=== PATIENT | female | born 1975 | race African-American/Black ===

== ENCOUNTER 2024-12-07 08:55 | Inpatient (IN) | payer MEDICAID, OTHER ==
[~2024-12-07] VITALS: Ht 165.1 cm; Wt 48.5 kg
[~2024-12-07 08:55] MED LIST: FERR325T28 PO; FLUT1BLS13 INH; FURO40TA5 PO; HYDR200T4 PO; LOSA25TA27 PO; METO-356 PO; NIFE60TA73 PO; SPIR25TA6 PO; TIOT18CA3 INH
[2024-12-07] MEDS ORDERED: SACU1TAB PO (09:13)
[2024-12-07] MEDS ORDERED: CARV3.122 PO (09:13)
[2024-12-07] MEDS ORDERED: OLAN10TA73 PO (09:13)
[2024-12-07] MEDS ORDERED: DIGO125T PO (09:13)
[2024-12-07] MEDS ORDERED: FURO40TA5 PO (09:13)
[2024-12-07] MEDS ORDERED: ATOR40TA PO (09:13)
[2024-12-07] MEDS ORDERED: SACU1TAB7 PO (09:13)
[2024-12-07 09:20] LABS: PLATELET COUNT (AUTO) 336 K/uL (179-408); RED BLOOD CELL COUNT(AUTO) 4.88 MIL/uL (3.63-4.92); RED CELL DISTRIBUTION WIDTH 19.1 % (12.3-17.7); WHITE BLOOD COUNT (AUTO) 6.4 K/uL (3.8-11.8)
[2024-12-07 09:27] LABS: CREATININE 0.6 mg/dL (0.6-1.3); SODIUM SERUM 141 mmol/L (136-145); UREA NITROGEN, BLOOD 11 mg/dL (7-18)
[2024-12-07 09:34] LABS: ASPARTATE AMINOTRANSFERASE 13 U/L (15-37); TOTAL PROTEIN, SERUM 8.6 g/dL (6.4-8.2)
[2024-12-07] MEDS ORDERED: METOPROLOL TARTRATE 50 MG TABLET ONE (09:49)
[2024-12-07] MEDS ORDERED: FUROSEMIDE 20 MG/2 ML VIAL ONE (09:49)
[2024-12-07] MEDS: FUROSEMIDE 20 MG/2 ML VIAL IV ONE (09:58)
[2024-12-07] MEDS: METOPROLOL TARTRATE 50 MG TABLET PO ONE (09:59)
[2024-12-07 10:34] LABS: *BILIRUBIN,URIN NEGATIVE (NEGATIVE); *BLOOD, URINE NEGATIVE (NEGATIVE); *CLARITY,URINE CLEAR (CLEAR); *COLOR,URINE YELLOW (YELLOW); *KETONES,URINE NEGATIVE (NEGATIVE); *PROTEIN,URINE NEGATIVE (NEGATIVE); *UROBILINOGEN,URINE 0.2 E.U./dl (NORMAL); LEUKOCYTE ESTERASE ,URINE NEGATIVE (NEGATIVE); NITRITE, URINE NEGATIVE (NEGATIVE); UGLUCOSE NEGATIVE (NEGATIVE)
[2024-12-07] MEDS ORDERED: FURO40TA5 (10:47)
[2024-12-07 10:48] LABS: *AMPHETAMINE, URINE NEGATIVE (NEGATIVE); *BARBITURATE, URINE NEGATIVE (NEGATIVE); *BENZODIAZEPINE, URINE NEGATIVE (NEGATIVE); *CANNABINOID, URINE NEGATIVE (NEGATIVE); *COCCAINE, URINE POSITIVE (NEGATIVE); *OPIATE, URINE NEGATIVE (NEGATIVE); *PHENCYCLIDINE SCREEN,URINE NEGATIVE (NEGATIVE); FENTANYL, URINE NEGATIVE (NEGATIVE)
[2024-12-07] MEDS ORDERED: ISOSORBIDE MONONITRATE 10 MG TABLET PO ONE (11:45)
[2024-12-07] MEDS: ISOSORBIDE MONONITRATE 30 MG TAB.SR.24H PO ONE (11:49)
[2024-12-07] MEDS ORDERED: REMEDY ESSENTIAL ZINC PASTE 113 GM TP PRN (12:30)
[2024-12-07] MEDS ORDERED: MAGNESIUM HYDROXIDE 30 ML LIQUID UDC PO PRN (12:30)
[2024-12-07] MEDS ORDERED: ONDANSETRON 4 MG/2 ML VIAL IV PRN (12:30)
[2024-12-07] MEDS ORDERED: ACETAMINOPHEN 325 MG TABLET ONE (13:05)
[2024-12-07] MEDS: ACETAMINOPHEN 325 MG TABLET PO PRN (13:07)
[2024-12-07] MEDS ORDERED: HYDROCODONE/APAP 5-325MG TABLET ONE (13:53)
[2024-12-07] MEDS: HYDROCODONE/APAP 5-325MG TABLET PO PRN (13:55)
[2024-12-07 14:21] VITALS: BP 151/97
[2024-12-07 15:52] VITALS: BP 153/90; TEMP 98.7; O2SAT 98
[2024-12-07 19:00] VITALS: BP 145/92; TEMP 98; O2SAT 100
[2024-12-07] MEDS: FUROSEMIDE 40 MG/4 ML VIAL IV SCH (21:11)
[2024-12-07] MEDS: ENOXAPARIN SODIUM 40 MG/0.4 ML DISP.SYRIN SQ SCH (21:11)
[2024-12-08] VITALS: BP 147/87; TEMP 98; O2SAT 100
[2024-12-08 04:00] VITALS: BP 146/78; TEMP 98.3; O2SAT 99
[2024-12-08] MEDS: PANTOPRAZOLE SODIUM 40 MG TABLET.DR PO SCH (06:15)
[2024-12-08 06:51] LABS: PLATELET COUNT (AUTO) 335 K/uL (179-408); RED BLOOD CELL COUNT(AUTO) 5.32 MIL/uL (3.63-4.92); RED CELL DISTRIBUTION WIDTH 19.1 % (12.3-17.7); WHITE BLOOD COUNT (AUTO) 8.4 K/uL (3.8-11.8)
[2024-12-08 07:26] LABS: CREATININE 0.8 mg/dL (0.6-1.3); SODIUM SERUM 143.0 mmol/L (136-145); UREA NITROGEN, BLOOD 20.0 mg/dL (7-18)
[2024-12-08 07:43] VITALS: BP 142/86; TEMP 98.5; O2SAT 97
[2024-12-08] MEDS: NICOTINE 21 MG/24HR PATCH TD SCH (08:42)
[2024-12-08 09:40] LABS: EOSINOPHILS % (MANUAL) 2 % (0-8); LYMPHOCYTES % (MANUAL) 18 % (20-40); MONOCYTES % (MANUAL) 13 % (2-10); NEUTROPHILS % (MANUAL) 67 % (42-75); PLATELET ESTIMATE ADEQUATE
[2024-12-08] MEDS ORDERED: METO25TA6 PO (10:16)
[2024-12-08] MEDS ORDERED: ALBU18HF2 IH (10:17)
[2024-12-08] MEDS ORDERED: LEVE500T20 PO (10:18)
[2024-12-08] MEDS ORDERED: FLUT1DIS29 INH (10:19)
[2024-12-08] MEDS ORDERED: PROM6.2516 PO (10:21)
[2024-12-08] MEDS ORDERED: IBUPROFEN 600 MG TABLET PO PRN (10:30)
[2024-12-08] MEDS ORDERED: ALBUTEROL SULFATE 8 GM HFA.AER.AD IH PRN (10:45)
[2024-12-08 10:51] VITALS: BP 148/75; TEMP 98; O2SAT 97
[2024-12-08] MEDS ORDERED: ALBUTEROL SULFATE 2.5 MG/ 0.5 ML NEBU NEB PRN (11:15)
[2024-12-08] MEDS ORDERED: FLUTICASONE/SALMETEROL 500/50 EACH DISK.W.DEV INH SCH (17:00)
[2024-12-08] MEDS ORDERED: METOPROLOL TARTRATE 25 MG TABLET PO SCH (21:00)
[2024-12-08] MEDS ORDERED: SACUBITRIL/VALSARTAN 49 MG-51 MG TABLET PO SCH (21:00)
== END 2024-12-08 11:55 | disposition left against medical advice (07) | DRG 194 ==
LOC: ER 08:55 → TELE IN 12:48 → TELE3 14:43
DX: I11.0 Hypertensive heart disease with heart failure (principal); I21.A1 Myocardial infarction type 2; R18.8 Other ascites; K74.60 Unspecified cirrhosis of liver; M32.9 Systemic lupus erythematosus, unspecified; I50.23 Acute on chronic systolic (congestive) heart failure; Z53.29 Procedure and treatment not carried out because of patient's decision for other reasons; J44.9 Chronic obstructive pulmonary disease, unspecified; M06.9 Rheumatoid arthritis, unspecified; F10.10 Alcohol abuse, uncomplicated; F14.10 Cocaine abuse, uncomplicated; Z79.899 Other long term (current) drug therapy; F17.210 Nicotine dependence, cigarettes, uncomplicated; R00.0 Tachycardia, unspecified; T50.1X6A Underdosing of loop [high-ceiling] diuretics, initial encounter; Z91.148 Patient's other noncompliance with medication regimen for other reason; Y92.59 Other trade areas as the place of occurrence of the external cause; R10.84 Generalized abdominal pain
CPT/HCPCS: 36415; 70030-TC; 71045; 73110; 83735; 84100; 84443; 84484; 85025; 85730; 93307; A4663; G0378; J1650; J1938

== ENCOUNTER 2025-02-09 03:00 | Inpatient (IN) | payer OTHER ==
[~2025-02-09] VITALS: Ht 162.6 cm; Wt 55.3 kg
[2025-02-09] VITALS (9 sets, daily range): BP systolic 147–178; BP diastolic 88–122; TEMP 97.8–100.8; O2SAT 93–100
[~2025-02-09 03:00] MED LIST changes: +ALBU18HF2 IH; -FERR325T28 PO; -FLUT1BLS13 INH; +FLUT1DIS29 INH; -FURO40TA5 PO; -HYDR200T4 PO; +LEVE500T20 PO; -LOSA25TA27 PO; -METO-356 PO; +METO25TA6 PO; -NIFE60TA73 PO; +PROM6.2516 PO; +SACU1TAB7 PO; -SPIR25TA6 PO; -TIOT18CA3 INH
[2025-02-09] MEDS ORDERED: IPRATROPIUM BROMIDE 0.5 MG/2.5 ML NEBU ONE (03:34)
[2025-02-09] MEDS ORDERED: ALBUTEROL SULFATE 2.5 MG/3 ML NEBU ONE (03:34)
[2025-02-09] MEDS: IPRATROPIUM BROMIDE 0.5 MG/2.5 ML NEBU NEB ONE (03:41)
[2025-02-09] MEDS: ALBUTEROL SULFATE 2.5 MG/3 ML NEBU NEB ONE (03:42)
[2025-02-09 03:50] LABS: PLATELET COUNT (AUTO) 513 K/uL (179-408); RED BLOOD CELL COUNT(AUTO) 4.84 MIL/uL (3.63-4.92); RED CELL DISTRIBUTION WIDTH 18.8 % (12.3-17.7); WHITE BLOOD COUNT (AUTO) 9.7 K/uL (3.8-11.8)
[2025-02-09 04:03] LABS: CREATININE 0.9 mg/dL (0.6-1.3); SODIUM SERUM 140 mmol/L (136-145); UREA NITROGEN, BLOOD 24 mg/dL (7-18)
[2025-02-09 04:09] LABS: ASPARTATE AMINOTRANSFERASE 69 U/L (15-37); TOTAL PROTEIN, SERUM 7.0 g/dL (6.4-8.2)
[2025-02-09 04:20] LABS: PLATELET ESTIMATE INCREASED
[2025-02-09 04:21] LABS: LYMPHOCYTES % (MANUAL) 22 % (20-40); MONOCYTES % (MANUAL) 15 % (2-10); NEUTROPHILS % (MANUAL) 63 % (42-75)
[2025-02-09 05:01] LABS: *BILIRUBIN,URIN NEGATIVE (NEGATIVE); *BLOOD, URINE NEGATIVE (NEGATIVE); *COLOR,URINE YELLOW (YELLOW); *KETONES,URINE NEGATIVE (NEGATIVE); *PROTEIN,URINE 2+ (NEGATIVE); *UROBILINOGEN,URINE 0.2 E.U./dl (NORMAL); LEUKOCYTE ESTERASE ,URINE TRACE (NEGATIVE); NITRITE, URINE NEGATIVE (NEGATIVE); UGLUCOSE NEGATIVE (NEGATIVE)
[2025-02-09 05:03] LABS: *CLARITY,URINE HAZY (CLEAR); *URINE HCG, QUAL NEGATIVE (NEGATIVE)
[2025-02-09 05:12] LABS: SQUAMOUS EPITHELIAL CELL,UR MODERATE /HPF (NONE SEEN)
[2025-02-09 05:13] LABS: *AMPHETAMINE, URINE NEGATIVE (NEGATIVE); *BARBITURATE, URINE NEGATIVE (NEGATIVE); *BENZODIAZEPINE, URINE NEGATIVE (NEGATIVE); *CANNABINOID, URINE NEGATIVE (NEGATIVE); *COCCAINE, URINE POSITIVE (NEGATIVE); *OPIATE, URINE NEGATIVE (NEGATIVE); *PHENCYCLIDINE SCREEN,URINE NEGATIVE (NEGATIVE); FENTANYL, URINE POSITIVE (NEGATIVE)
[2025-02-09] MEDS ORDERED: LORAZEPAM 2 MG/1 ML VIAL ONE (05:32)
[2025-02-09] MEDS: LORAZEPAM 2 MG/1 ML VIAL IV ONE (05:37)
[2025-02-09] MEDS: FOSFOMYCIN TROMETHAMINE 3 GM PACKET PO ONE (06:45)
[2025-02-09] MEDS ORDERED: FOSFOMYCIN TROMETHAMINE 3 GM PACKET ONE (06:45)
[2025-02-09] MEDS ORDERED: IPRATROPIUM BROMIDE 0.5 MG/2.5 ML NEBU NEB PRN (09:30)
[2025-02-09] MEDS ORDERED: ALBUTEROL SULFATE 2.5 MG/ 0.5 ML NEBU NEB PRN (09:30)
[2025-02-09] MEDS: FUROSEMIDE 40 MG/4 ML VIAL IV SCH (10:41)
[2025-02-09] MEDS: LORAZEPAM 2 MG/1 ML VIAL IV PRN (13:46)
[2025-02-09] MEDS: THIAMINE HCL 100 MG TABLET PO SCH (13:46)
[2025-02-09] MEDS: FOLIC ACID 1 MG TABLET PO SCH (13:46)
[2025-02-09] MEDS: ACETAMINOPHEN 325 MG TABLET PO PRN (15:35)
[2025-02-09] MEDS: MORPHINE SULFATE 2 MG/1 ML DISP.SYRIN IV PRN (16:42)
[2025-02-09] MEDS ORDERED: FLUTICASONE/SALMETEROL 500/50 EACH DISK.W.DEV INH SCH (17:00)
[2025-02-09] MEDS: SACUBITRIL/VALSARTAN 49 MG-51 MG TABLET PO SCH (20:52)
[2025-02-09] MEDS: MOMETASONE/FORMOTEROL 8.8 GM HFA.AER.AD IH SCH (20:53)
[2025-02-09] MEDS ORDERED: PIPERACILLIN SODIUM/TAZO 3.375 GM VIAL ONE (23:14)
[2025-02-10] VITALS: BP 105/55; TEMP 97.8; O2SAT 93
[2025-02-10] MEDS: PIPERACILLIN SODIUM/TAZOBACTAM 3.375 G in IV DEXTROSE 5% 50 ML IV SCH (00:03)
[2025-02-10 04:00] VITALS: BP 118/88; TEMP 98.4; O2SAT 95
[2025-02-10] MEDS: PANTOPRAZOLE SODIUM 40 MG TABLET.DR PO SCH (07:00)
== END 2025-02-10 07:15 | disposition left against medical advice (07) | DRG 140 ==
LOC: ER 03:14 → TELE3 06:25
PROVIDERS: ADMIT Nurse Practitioner Acute Care; ATTEND Internal Medicine
DX: J44.1 Chronic obstructive pulmonary disease with (acute) exacerbation (principal); J96.00 Acute respiratory failure, unspecified whether with hypoxia or hypercapnia; E43 Unspecified severe protein-calorie malnutrition; K65.9 Peritonitis, unspecified; I50.23 Acute on chronic systolic (congestive) heart failure; I21.A1 Myocardial infarction type 2; N39.0 Urinary tract infection, site not specified; I11.0 Hypertensive heart disease with heart failure; D50.9 Iron deficiency anemia, unspecified; E11.9 Type 2 diabetes mellitus without complications; K70.31 Alcoholic cirrhosis of liver with ascites; F10.10 Alcohol abuse, uncomplicated; F11.13 Opioid abuse with withdrawal; M32.9 Systemic lupus erythematosus, unspecified; I42.0 Dilated cardiomyopathy; F10.139 Alcohol abuse with withdrawal, unspecified; F14.13 Cocaine abuse, unspecified with withdrawal; F17.210 Nicotine dependence, cigarettes, uncomplicated; Z68.20 Body mass index [BMI] 20.0-20.9, adult; Z53.29 Procedure and treatment not carried out because of patient's decision for other reasons; M06.9 Rheumatoid arthritis, unspecified; Z79.51 Long term (current) use of inhaled steroids; Z91.199 Patient's noncompliance with other medical treatment and regimen due to unspecified reason; Z79.899 Other long term (current) drug therapy
CPT/HCPCS: 36415; 70030-TC; 71045; 84484; 84703; 85730; 87086; 94760; A4606; A4663; G0378; J0696; J1938; J2060; J2270; J2543; J3590

== ENCOUNTER 2025-02-13 23:32 | Emergency (ER) | payer OTHER ==
[~2025-02-13] VITALS: Ht 162.6 cm; Wt 54.4 kg
[2025-02-14 00:13] LABS: PLATELET COUNT (AUTO) 386 K/uL (179-408); RED BLOOD CELL COUNT(AUTO) 4.93 MIL/uL (3.63-4.92); RED CELL DISTRIBUTION WIDTH 18.6 % (12.3-17.7); WHITE BLOOD COUNT (AUTO) 9.1 K/uL (3.8-11.8)
[2025-02-14 00:21] LABS: CREATININE 0.9 mg/dL (0.6-1.3); SODIUM SERUM 140.0 mmol/L (136-145); UREA NITROGEN, BLOOD 22.0 mg/dL (7-18)
[2025-02-14 00:33] LABS: ASPARTATE AMINOTRANSFERASE 50.0 U/L (15-37); NT-PRO BNP 17548 pg/mL (0-125); TOTAL PROTEIN, SERUM 7.4 g/dL (6.4-8.2)
[2025-02-14 00:36] LABS: ETHANOL < 3 MG/DL (0-10)
[2025-02-14 01:30] LABS: LYMPHOCYTES % (MANUAL) 26 % (20-40); MONOCYTES % (MANUAL) 7 % (2-10); NEUTROPHILS % (MANUAL) 67 % (42-75); PLATELET ESTIMATE ADEQUATE
[2025-02-14 01:42] VITALS: BP 145/102; O2SAT 99
[2025-02-14] MEDS ORDERED: FUROSEMIDE 20 MG/2 ML VIAL ONE (02:05)
[2025-02-14] MEDS ORDERED: MORPHINE SULFATE 4 MG/1 ML DISP.SYRIN ONE (02:05)
[2025-02-14] MEDS ORDERED: METOCLOPRAMIDE HCL 10 MG/2 ML VIAL ONE (02:05)
[2025-02-14] MEDS: METOCLOPRAMIDE HCL 10 MG/2 ML VIAL IV ONE (02:24)
[2025-02-14] MEDS: MORPHINE SULFATE 4 MG/1 ML DISP.SYRIN IV ONE (02:24)
[2025-02-14] MEDS: FUROSEMIDE 20 MG/2 ML VIAL IV ONE (02:24)
[2025-02-14] MEDS ORDERED: diphenhydrAMINE 50 MG/1 ML VIAL ONE (02:26)
[2025-02-14] MEDS: diphenhydrAMINE 50 MG/1 ML VIAL IV ONE (02:28)
[2025-02-14 11:29] LABS: ABG BASE EXCESS 0.7 mmol/L (-2.0-3.0); ABG HCO3 25.4 mmol/L (21.0-28.0); ABG PCO2 41.3 mmHg (32.0-45.0); ABG PH 7.407 (7.350-7.450); ABG PO2 65.3 mmHg (83.0-108.0); ABG SITE LEFT RADIAL; ABG TOTAL HEMOGLOBIN 11.2 G/dL (12.0-16.0); AaDO2 93.0 mmHg; FIO2 21.0 %
== END 2025-02-14 03:30 | disposition short-term general hospital (02) ==
LOC: ER 23:37
DX: F10.20 Alcohol dependence, uncomplicated (principal); F14.10 Cocaine abuse, uncomplicated; I42.0 Dilated cardiomyopathy; I50.9 Heart failure, unspecified; J44.89 Other specified chronic obstructive pulmonary disease; K74.60 Unspecified cirrhosis of liver; Z53.29 Procedure and treatment not carried out because of patient's decision for other reasons; Z79.51 Long term (current) use of inhaled steroids; Z87.891 Personal history of nicotine dependence; Z60.2 Problems related to living alone
CPT/HCPCS: 71045; 93005; 99285; 80307; 36600; 80076; 80048; 83880; 85007; 85027; 96374; 96375; 80320; J1200; J1938; J2765; J2270; 70030-TC; A4606; A4663; G0480